=== PATIENT | female | born 1935 | race Caucasian/White ===

== ENCOUNTER 2022-06-28 11:02 | Inpatient (IN) | payer MEDICARE ==
[~2022-06-28] VITALS: Ht 502.9 cm; Wt 61.6 kg
[2022-06-28] MEDS ORDERED: ALBUTEROL 0.083% 2.5 MG/3 ML INH IH PRN (11:30)
[2022-06-28] MEDS ORDERED: DIPHENHYDRAMINE HCL 25 MG CAPSULE PO PRN (11:30)
[2022-06-28] MEDS ORDERED: GUAIFENESIN-DM 200/20 MG 10 ML PO PRN (11:30)
[2022-06-28] MEDS ORDERED: ZOLPIDEM TARTRATE 5 MG TAB PO PRN (11:30)
[2022-06-28] MEDS ORDERED: LACTULOSE 20 GM/30 ML UDCUP PO PRN (11:30)
[2022-06-28] MEDS ORDERED: ONDANSETRON 4MG INJ IVP PRN (11:30)
[2022-06-28] MEDS: 1/2 NS 1000ML 1,000 ML IV SCH (12:30)
[2022-06-28] MEDS: ZOSYN 3.375GM +NS 50ML IVPB SCH ×2 (12:30→20:18)
[2022-06-28] MEDS ORDERED: FLUT16H NASAL (12:47)
[2022-06-28 13:00] LABS: BASOPHILS % (AUTO) 0.7 % (0.0-5.0); EOSINOPHILS % (AUTO) 1.1 % (0.0-8.0); HEMATOCRIT 39.3 % (36-48); LYMPHOCYTES % (AUTO) 9.6 % (21.0-51.0); MEAN CORPUSCULAR VOLUME 86.8 fL (79-99); MONOCYTES % (AUTO) 8.5 % (3.0-13.0); NEUTROPHILS % (AUTO) 79.6 % (40.0-77.0); PLATELET COUNT (AUTO) 338 K/uL (130-400); RED BLOOD CELL COUNT(AUTO) 4.53 MIL/uL (4.00-5.50); RED CELL DISTRIBUTION WIDTH 14.5 % (11.0-15.5)
[2022-06-28 13:15] LABS: CREATININE 0.6 mg/dL (0.5-1.5); POTASSIUM 3.3 mmol/L (3.5-5.1)
[2022-06-28] MEDS: IPRATROPIUM/ALBUTEROL SULFATE 3 ML SOLUTION IH SCH ×2 (13:16→18:37)
[2022-06-28 13:21] LABS: ALBUMIN 4.1 g/dL (3.5-5.0); TOTAL PROTEIN, SERUM 8.2 g/dL (6.0-8.3)
[2022-06-28] MEDS: ACETAMINOPHEN 325 MG TAB PO PRN ×2 (14:52→20:11)
[2022-06-28] MEDS: POTASSIUM CHLORIDE 10% ELIXIR 20 MEQ/15 ML UDCUP PO PRN ×2 (15:26→18:14)
[2022-06-28] MEDS ORDERED: KCL 20 MEQ ERTAB PO PRN (15:30)
[2022-06-28] MEDS ORDERED: POTASSIUM CHLORIDE 20MEQ/100ML 100 ML IV PRN (15:30)
[2022-06-28] MEDS: FAMOTIDINE 20MG TAB PO SCH (20:11)
[2022-06-28] MEDS: SOLU-MEDROL 125MG VIAL IVP SCH (20:11)
[2022-06-28] MEDS ORDERED: ESCI-8 PO (22:02)
[2022-06-28] MEDS ORDERED: LISI40TA9 PO (22:02)
[2022-06-28] MEDS ORDERED: CARV6.25 PO (22:02)
[2022-06-28] MEDS ORDERED: AMLO-257 PO (22:02)
[2022-06-28] MEDS ORDERED: BUSP10TA3 PO (22:02)
[2022-06-28] MEDS ORDERED: glucocil PO (22:02)
[2022-06-29] VITALS: BP 158/76
[2022-06-29 04:00] VITALS: BP 144/72
[2022-06-29] MEDS: ZOSYN 3.375GM +NS 50ML IVPB SCH ×3 (04:21→19:50)
[2022-06-29 06:22] LABS: BASOPHILS % (AUTO) 0.1 % (0.0-5.0); EOSINOPHILS % (AUTO) 0.1 % (0.0-8.0); HEMATOCRIT 37.4 % (36-48); LYMPHOCYTES % (AUTO) 4.6 % (21.0-51.0); MEAN CORPUSCULAR HEMOGLOBIN 25.9 pg (27.0-33.0); MEAN CORPUSCULAR HGB CONC 29.9 g/dL (32.0-36.0); MEAN CORPUSCULAR VOLUME 86.4 fL (79-99); MONOCYTES % (AUTO) 1.2 % (3.0-13.0); NEUTROPHILS % (AUTO) 93.5 % (40.0-77.0); PLATELET COUNT (AUTO) 320 K/uL (130-400); RED BLOOD CELL COUNT(AUTO) 4.33 MIL/uL (4.00-5.50); RED CELL DISTRIBUTION WIDTH 14.3 % (11.0-15.5); WHITE BLOOD COUNT (AUTO) 7.6 K/uL (4.8-10.8)
[2022-06-29 06:42] LABS: ALBUMIN 3.6 g/dL (3.5-5.0); BILIRUBIN,DIRECT 0.1 mg/dL (0.0-0.3); CREATININE 0.7 mg/dL (0.5-1.5); POTASSIUM 4.1 mmol/L (3.5-5.1); TOTAL PROTEIN, SERUM 7.3 g/dL (6.0-8.3)
[2022-06-29] MEDS: IPRATROPIUM/ALBUTEROL SULFATE 3 ML SOLUTION IH SCH ×5 (07:06→23:49)
[2022-06-29 08:27] VITALS: BP 169/98
[2022-06-29] MEDS: SOLU-MEDROL 125MG VIAL IVP SCH ×2 (08:44→19:50)
[2022-06-29] MEDS: FAMOTIDINE 20MG TAB PO SCH ×2 (08:45→19:51)
[2022-06-29] MEDS: ENOXAPARIN SODIUM 40 MG/0.4 ML SYRINGE SQ SCH (08:47)
[2022-06-29 12:32] VITALS: BP 157/88
[2022-06-29] MEDS: 1/2 NS 1000ML 1,000 ML IV SCH (15:40)
[2022-06-29 17:40] VITALS: BP 151/76
[2022-06-29 20:00] VITALS: BP 151/85
[2022-06-30] VITALS: BP 146/80
[2022-06-30] MEDS: ZOSYN 3.375GM +NS 50ML IVPB SCH (03:50)
[2022-06-30] MEDS: 1/2 NS 1000ML 1,000 ML IV SCH (03:50)
[2022-06-30 04:00] VITALS: BP 148/73
[2022-06-30 05:53] LABS: HEMATOCRIT 33.4 % (36-48); MEAN CORPUSCULAR HEMOGLOBIN 26.2 pg (27.0-33.0); MEAN CORPUSCULAR HGB CONC 30.5 g/dL (32.0-36.0); MEAN CORPUSCULAR VOLUME 85.6 fL (79-99); MONOCYTES % (AUTO) 4.9 % (3.0-13.0); NEUTROPHILS % (AUTO) 89.5 % (40.0-77.0); PLATELET COUNT (AUTO) 297 K/uL (130-400); RED CELL DISTRIBUTION WIDTH 14.3 % (11.0-15.5); WHITE BLOOD COUNT (AUTO) 10.3 K/uL (4.8-10.8)
[2022-06-30 06:10] LABS: ALBUMIN 3.3 g/dL (3.5-5.0); CREATININE 0.8 mg/dL (0.5-1.5); POTASSIUM 4.1 mmol/L (3.5-5.1); TOTAL PROTEIN, SERUM 6.5 g/dL (6.0-8.3)
[2022-06-30] MEDS: IPRATROPIUM/ALBUTEROL SULFATE 3 ML SOLUTION IH SCH ×2 (07:09→11:27)
[2022-06-30 08:00] VITALS: BP 151/83
[2022-06-30] MEDS: FAMOTIDINE 20MG TAB PO SCH (08:31)
[2022-06-30] MEDS: SOLU-MEDROL 125MG VIAL IVP SCH (08:31)
[2022-06-30] MEDS: ENOXAPARIN SODIUM 40 MG/0.4 ML SYRINGE SQ SCH (08:37)
[2022-06-30 11:54] VITALS: BP 144/91
== END 2022-06-30 13:50 | disposition home or self-care (01) | DRG 191 ==
LOC: EDH 11:02 → DIRECT 11:03 → 3BH 22:56
PROVIDERS: ADMIT Internal Medicine; ATTEND Internal Medicine
DX: J44.1 Chronic obstructive pulmonary disease with (acute) exacerbation (principal); I44.2 Atrioventricular block, complete; J96.11 Chronic respiratory failure with hypoxia; E78.5 Hyperlipidemia, unspecified; I48.0 Paroxysmal atrial fibrillation; I10 Essential (primary) hypertension; E11.51 Type 2 diabetes mellitus with diabetic peripheral angiopathy without gangrene; M40.209 Unspecified kyphosis, site unspecified; I25.10 Atherosclerotic heart disease of native coronary artery without angina pectoris; Z79.899 Other long term (current) drug therapy
CPT/HCPCS: 36415; 71045; 80048; 80053; 80076; 82948; 85025; 93005; 94640; 94664; G0378; J1650; J2543; J2930

== ENCOUNTER 2022-12-29 16:53 | Emergency (ER) | payer MEDICARE ==
[~2022-12-29] VITALS: Ht 152.4 cm; Wt 63.0 kg
[~2022-12-29 16:53] MED LIST: AMLO-257 PO; BUSP10TA3 PO; CARV6.25 PO; ESCI-8 PO; FLUT16H NASAL; LISI40TA9 PO; glucocil PO
[2022-12-29 17:14] VITALS: BP 154/72; PULSE 79; RESP 16; O2SAT 91
[2022-12-29] MEDS ORDERED: TETANUS/DIPHTHERIA TOXOID [ADULT] 0.5 ML VIAL IM ONE (20:30)
[2022-12-29] MEDS ORDERED: BACITRACIN 1 EACH PACKET TP ONE (20:30)
== END 2022-12-29 21:21 | disposition home or self-care (01) ==
LOC: EDH 16:53
DX: S00.93XA Contusion of unspecified part of head, initial encounter (principal); S59.911A Unspecified injury of right forearm, initial encounter; E11.9 Type 2 diabetes mellitus without complications; I10 Essential (primary) hypertension; I25.10 Atherosclerotic heart disease of native coronary artery without angina pectoris; I48.91 Unspecified atrial fibrillation; J44.9 Chronic obstructive pulmonary disease, unspecified; K21.9 Gastro-esophageal reflux disease without esophagitis; Z79.899 Other long term (current) drug therapy; Z88.7 Allergy status to serum and vaccine; W01.0XXA Fall on same level from slipping, tripping and stumbling without subsequent striking against object, initial encounter; Y93.89 Activity, other specified; Y92.89 Other specified places as the place of occurrence of the external cause; Y99.8 Other external cause status
CPT/HCPCS: 70450; 72125; 73090; 73620; 90471; 90714